=== PATIENT | female | born 1950 | race Caucasian/White ===

== ENCOUNTER → 2017-07-28 | Outpatient (CLI) | payer MEDICARE, BC | END | disposition home or self-care (01) | LOC: RAD 13:44 | DX: S80.252A Superficial foreign body, left knee, initial encounter (principal); M17.12 Unilateral primary osteoarthritis, left knee; X58.XXXA Exposure to other specified factors, initial encounter; Y93.89 Activity, other specified; Y92.89 Other specified places as the place of occurrence of the external cause; Y99.8 Other external cause status | CPT/HCPCS: 73562 ==

== ENCOUNTER → 2019-07-21 | Outpatient (CLI) | payer MEDICARE, BC ==
[~2019-07-21] MED LIST: ASCO500C9 PO; BIOT10004 PO; CALC-71 PO; CHOL200078 PO; CYAN25008 PO; DEXT30CA6 PO; GLUC-11 PO; IOHEXOL 180 MG/ML 10 ML VIAL. ONE; LISI10TA2 PO; MELO7.5T29 PO; MULT-735 PO; UBID100C26 PO; methylPREDNISolone ACETATE 40 MG/ML VIAL. ONE; methylPREDNISolone ACETATE 80 MG/ML VIAL. ONE
--- NOTE | 2019-07-22 00:30 | PAIN ---
DATE OF SERVICE: 07/21/2019 INITIAL CONSULTATION FOR PAIN CLINIC CHIEF COMPLAINT: Low back and bilateral lower extremity pain. HISTORY OF PRESENT ILLNESS: This is a 69-year-old female who presents with history of pain in the low back, bilateral lower extremity since about 09/2017, not a result of any specific injury or action that she is aware of, but getting worse over time, gradually increasing in the low back radiating to posterior gluteus, posterior thighs, posterior calves bilaterally, essentially right equal to left. The patient reports it is worse with walking, standing, changing positions, but waking her from sleep at least 2-3 times a night, does not affect her bowel or bladder control, however, but does affect her ability to walk at times, not using any assistive devices, however, the patient reports she has had some chiropractic treatment and physical therapy in the past, most recently 09/2017, chiropractic treatment, which helped at that time, but did not have any long lasting effects. The patient reports it is worse with walking, especially more than about 10-15 minutes, she does have to stop and rest, but can sit for longer periods of time with greater than an hour or so such as riding in a car. It is much more noticeable after about an hour or so. The patient reports no loss of motor function, but significant fatigability of both lower extremities, described as intermittent in intensity, but changes during the day, again with activity, radiating down both the legs posteriorly, shooting pain, aching and dull across the low back. The patient reports a disability rating from 0-10, 10 being the worst, is a 7 with family and home responsibilities, recreation and occupation, 3 with social activity, sexual behavior, 2 with self-care and 0 with life support activities. She did have MRI scan of the lumbar spine demonstrating severe disk bulging and slight anterolisthesis at L4-L5 with moderate central spinal and bilateral lateral recess stenosis with moderate bilateral neural foraminal stenosis, worse on the left, L5-S1 shows anterolisthesis and near complete loss of disk height with diffuse annular disk bulges, marked facet arthropathy, marked left neural foraminal stenosis present with disk osteophyte complex appearing to contact the L5 nerve root, marked right neural foraminal stenosis without definite contact of the nerve root, central stenosis present as well. MEDICATIONS: Current medications include meloxicam, Adderall, lisinopril, multivitamin, calcium, glucosamine. ALLERGIES: THE PATIENT IS ALLERGIES TO PENICILLIN AND HYDROCHLOROTHIAZIDE. PAST MEDICAL HISTORY: Significant for hypertension, cigarette smoking, quit 13 years ago, headaches, arthritis. PREVIOUS SURGERY: Include tonsillectomy, D and C, , breast augmentation and hernia repair, bunion surgery, neuroma foot surgery as well. FAMILY HISTORY: Significant for no major medical problems or conditions she is aware of. SOCIAL HISTORY: The patient drinks alcohol, maybe 2 times a week at the most. Does not smoke. Not using illegal, illicit or recreational drugs. Single, lives with her fiance and lives locally in [place], [place]. REVIEW OF SYSTEMS: The patient's review of systems is positive for those items mentioned in history of present illness. All systems reviewed and otherwise negative. It is complete, full and well documented on the patient's chart. PHYSICAL EXAMINATION: VITAL SIGNS: The patient's blood pressure is 140/96, pulse 72, respirations 16, temperature 98.2 degrees Fahrenheit, height is 5 feet 1 inch, weight is 127 pounds. GENERAL: The patient is awake, alert, oriented, appropriate, very pleasant demeanor. HEENT: Head shows normocephalic, atraumatic. Extraocular movements are intact and symmetrical. Oral cavity: Mucous membranes moist and pink. Dentition is intact. NECK: Shows anterior throat supple without palpable lymphadenopathy noted. Swallow reflex symmetrical. CHEST: Shows normal on inspection. Breath sounds are clear to auscultation bilaterally. HEART: Shows S1, S2 clear. No murmurs auscultated. ABDOMEN: Soft, nontender, nondistended. No palpable organomegaly is noted. No rebound or guarding demonstrated. BACK: Shows spine grossly in the midline. Normal appearing cervical lordotic curvature, thoracic kyphotic curvature and lumbar lordotic curvature. Lumbar paraspinous muscle shows symmetrical on inspection, with palpation shows some moderate tenderness diffusely bilaterally going diffusely without significant radiation. The patient does show good rotation and motion of lumbar spine, both laterally as well as extension and flexion without significant pain reported. No tenderness over the spinous processes, sacrum or sacroiliac regions. EXTREMITIES: Lower extremities show deep tendon reflexes at 2+ in the patellar, 1+ tendo-calcaneus tendons. Motor exam is strong with 5/5 dorsiflexion, extension, quadriceps and hamstring flexion symmetrical. Peripheral pulses are 1+ posterior tibia. No peripheral edema is noted. Lower extremities are warm and dry to touch, equal in color and appearance. Straight leg raise noted to be negative for reproduction of radicular symptoms bilaterally. Gaenslen's and Felix's maneuvers are negative bilaterally as well. The patient is able to walk, stand on her toes without difficulty with balance, walks with a normal appearing gait, does not appear to favor the right or left lower extremity for short distance in the office, not using any assistive devices to ambulate. SKIN: Shows warm and dry, good turgor. No edema. No sores, rashes or bruising. IMPRESSION: 1. This is a 69-year-old female with approximate year and a half history of pain in low back, bilateral lower extremity in a radicular fashion. 2. Lumbar spine MRI as noted. 3. Hypertension. 4. Arthritis. PLAN: Options were discussed with the patient including conservative medical managements, physical therapies and interventional techniques. She would like to pursue interventional techniques. We discussed a lumbar epidural steroid injection using description as well as anatomical models to describe the procedure. Risks were then discussed including, but not limited to bleeding, infection, possibility of epidural hematoma, subsequent neurological compromise, dural puncture, headaches, spinal cord and/or nerve damage, side effects of steroid medication and poor results regarding pain control. The patient understands and wished to proceed. The patient will return to clinic in approximately 2 weeks for followup. She was counseled on return appointment, activity level and side effects to be aware of. DIAGNOSES: Lumbar radiculopathy with lumbar degenerative disk disease, lumbar spinal stenosis. PROCEDURE: Lumbar epidural steroid injection, translaminar approach at L5-S1 level using C-arm fluoroscopic guidance under sterile prep and drape using local anesthetic. MEDICATION INJECTED: A total of 120 mg Depo-Medrol plus 10 mL of preservative-free normal saline and 2 mL of contrast. CONDITION AT DISCHARGE: Stable. The patient tolerated procedure well, had no complications. NICK SEGURA MD DR: NIRMAL/gibson JOB#: [id number] / [id number]
== END | disposition home or self-care (01) ==
LOC: PNCL 08:08
PROVIDERS: ATTEND Anesthesiology
DX: M51.16 Intervertebral disc disorders with radiculopathy, lumbar region (principal); M48.061 Spinal stenosis, lumbar region without neurogenic claudication; M19.90 Unspecified osteoarthritis, unspecified site; I10 Essential (primary) hypertension; Z79.899 Other long term (current) drug therapy; Z88.8 Allergy status to other drugs, medicaments and biological substances; Z88.0 Allergy status to penicillin; Z87.891 Personal history of nicotine dependence; Z98.890 Other specified postprocedural states
CPT/HCPCS: 62323; J1030; J1040; Q9965

== ENCOUNTER → 2019-08-04 | Outpatient (CLI) | payer MEDICARE, BC ==
[~2019-08-04] MED LIST changes: -IOHEXOL 180 MG/ML 10 ML VIAL. ONE; -methylPREDNISolone ACETATE 40 MG/ML VIAL. ONE; -methylPREDNISolone ACETATE 80 MG/ML VIAL. ONE
--- NOTE | 2019-08-04 12:55 | PAIN ---
DATE OF SERVICE: 08/04/2019 PROGRESS NOTE FOR PAIN CLINIC DIAGNOSES: Lumbar radiculopathy with lumbar degenerative disk disease, lumbar spinal stenosis. HISTORY OF PRESENT ILLNESS: The patient is a 69-year-old female who returns for followup status post lumbar epidural steroid injection x1. The patient reports about 75% improvement, significantly increased activity, walking greater distances, doing household activities, work activities, traveling with greater ease and comfort and has been working outside in her yard when the weather was a little warmer. The patient reports she is doing very well, was having very significant reduction in pain, occasionally pain in the low back and bilateral lower extremities, posterior gluteus, posterior thighs only very rarely. The patient reports she is sleeping well at night, essentially doing whatever she would like to do fairly comfortably without significant pain. The patient reports the pain is 4 on a scale of 10 at its worst over the past week, 3 on average, 1 at its least and is a 1 today. The patient reports no new motor or sensory deficits, no new bowel or bladder incontinence or other complaints. PHYSICAL EXAMINATION: VITAL SIGNS: The patient's blood pressure 141/84, pulse 78, respirations 16, temperature 98.0 degrees Fahrenheit, weight is 128 pounds. GENERAL: The patient is awake, alert, oriented, appropriate, very pleasant demeanor. HEENT: Head shows normocephalic, atraumatic. Extraocular movements are intact and symmetrical. Oral cavity: Mucous membranes moist and pink. Dentition is intact. NECK: Shows anterior throat supple without palpable lymphadenopathy noted. Swallow reflex symmetrical. CHEST: Shows normal on inspection. Breath sounds clear to auscultation bilaterally. HEART: Shows S1, S2 clear. ABDOMEN: Soft, nontender, nondistended. BACK: Shows spine grossly in the midline. Normal appearing thoracic kyphosis and lumbar lordotic curvature. Lumbar paraspinous muscle shows symmetrical on inspection, on palpation shows some very mild tenderness, but only in the low lumbar distribution bilaterally without asymmetry, without atrophy or hypertrophy. The patient has good rotational motion of lumbar spine, both laterally as well as extension and flexion without significant pain reported. EXTREMITIES: Lower extremities show deep tendon reflexes 2+ in the patellar, 1+ tendo-calcaneus tendons. Motor exam is strong with 5/5 dorsiflexion, extension, quadriceps and hamstring flexion symmetrical. Peripheral pulses are 1+ posterior tibia. No peripheral edema is noted bilaterally. PLAN: Options were discussed with the patient. The patient's old chart was reviewed as her current medication regimen updated. Current review of systems updated today as well. We will hold on any further injections at this time as the patient is doing quite well. Encourage or increase activity as tolerated, cautiously, but as tolerated. The patient will follow up at this time on as needed basis. NICK SEGURA MD DR: NIRMAL/gibson JOB#: [id number] / [id number]
== END | disposition home or self-care (01) ==
LOC: PNCL 08:46
PROVIDERS: ATTEND Anesthesiology
DX: M51.16 Intervertebral disc disorders with radiculopathy, lumbar region (principal); M48.061 Spinal stenosis, lumbar region without neurogenic claudication
CPT/HCPCS: G0463

== ENCOUNTER → 2019-11-02 | Outpatient (CLI) | payer MEDICARE, BC ==
[~2019-11-02] MED LIST changes: +IOHEXOL 180 MG/ML 10 ML VIAL. ONE; +methylPREDNISolone ACETATE 40 MG/ML VIAL. ONE; +methylPREDNISolone ACETATE 80 MG/ML VIAL. ONE
--- NOTE | 2019-11-02 10:14 | PAIN ---
DATE OF SERVICE: 11/02/2019 PROGRESS NOTE FOR PAIN CLINIC DIAGNOSES: Lumbar radiculopathy with lumbar degenerative disk disease, lumbar spinal stenosis. HISTORY OF PRESENT ILLNESS: The patient is a 69-year-old female who returns for followup status post lumbar epidural steroid injection x 1. The patient did very well after the last visit, we decided to hold off any further injections; however, the pain has come back now, the first injection was 07/21/2019. The patient reports she did very well, about 75% improvement. Pain is returning now in the back and bilateral lower extremities, radiating to posterior gluteus, posterior thighs, posterior calves, worse with walking, standing, better with sitting or lying down, but it has been again beginning to awaken her from sleep at night over the past few weeks about every 6-8 hours. The patient reports she has been doing much better with doing yard work at home, doing household activities, traveling with greater ease and comfort, reports now the pain is 7 on a scale of 10 at its worst over the past week, 6 on average, 5 at its least and is a 5 today. The patient reports it is sharp, tight, shooting in the lower extremities, low back as previously. No new motor or sensory deficits, no new bowel or bladder incontinence reported. PHYSICAL EXAMINATION: VITAL SIGNS: The patient's blood pressure 141/86, pulse is 77, respirations 20, temperature 98.4 degrees Fahrenheit, height is 5 feet 1 inch, weight is 129 pounds. GENERAL: The patient is awake, alert, oriented, appropriate, very pleasant demeanor. HEENT: Head shows normocephalic, atraumatic. Extraocular movements are intact and symmetrical. Oral cavity: Mucous membranes moist and pink. Dentition is intact. NECK: Shows anterior throat supple without palpable lymphadenopathy noted. Swallow reflex symmetrical. CHEST: Shows normal on inspection. Breath sounds clear to auscultation bilaterally. HEART: Shows S1, S2 clear. No murmurs auscultated. ABDOMEN: Soft, nontender, nondistended. No palpable organomegaly is noted. There is no rebound or guarding demonstrated. BACK: Shows spine grossly in the midline. Normal appearing thoracic kyphosis and minor flattening of lumbar lordotic curvature. Lumbar paraspinous muscle shows symmetrical on inspection.; on palpation shows some moderate tenderness diffusely bilaterally, but only diffusely without significant radiation. The patient has good rotational motion of lumbar spine, both laterally as well as extension and flexion without significant difficulty. EXTREMITIES: Lower extremities show deep tendon reflexes 2+ in the patellar, 1+ tendons. Motor exam is strong with 5/5 dorsiflexion, extension, quadriceps and hamstring flexion symmetrical. Peripheral pulses are 1+. No peripheral edema is noted bilaterally. Options were discussed with the patient. The patient's old chart was reviewed as her current medication regimen updated. Current review of systems updated today as well and we will proceed with a second in a series of lumbar epidural steroid injection today with fluoroscopic guidance. Risks were again discussed including, but not limited to bleeding, infection, possibility of epidural hematoma, subsequent neurological compromise, dural puncture, headaches, spinal cord and/or nerve damage, side effects of steroid medication and poor results regarding pain control. The patient understands and wished to proceed. The patient will return to clinic in approximately 2 weeks for followup. She was counseled on return appointment, activity level and side effects to be aware of. DIAGNOSIS: Lumbar radiculopathy with lumbar degenerative disk disease, lumbar spinal stenosis. PROCEDURE: Lumbar epidural steroid injection, translaminar approach at L5-S1 level using C-arm fluoroscopic guidance under sterile prep and drape using local anesthetic. MEDICATION INJECTED: A total of 120 mg Depo-Medrol plus 10 mL preservative-free normal saline and 2 mL of contrast. CONDITION AT DISCHARGE: Stable. The patient tolerated procedure well, had no complications. NICK SEGURA MD DR: NIRMAL/gibson JOB#: [id number] / [id number]
== END ==
LOC: PNCL 08:57
PROVIDERS: ATTEND Anesthesiology
DX: M51.16 Intervertebral disc disorders with radiculopathy, lumbar region (principal); M48.061 Spinal stenosis, lumbar region without neurogenic claudication
CPT/HCPCS: 62323; J1030; J1040; Q9965

== ENCOUNTER → 2020-02-09 | Outpatient (CLI) | payer MEDICARE, BC ==
--- NOTE | 2020-02-09 08:15 | PDOC ---
Progress Note - Pain Clinic Date of Service: DOS: DATE: 02/09/20 TIME: 08:12 Diagnosis: Dx: Lumbar radiculopathy with lumbar degenerative disc disease and lumbar spinal stenosis History or Present Illness: HPI: 69-year-old female returns follow-up status post lumbar epidural to injection x1. Patient last seen November 02, 2019. Patient reports she did very well initially for the first month to 2 months then the pain again returned over the past 3 to 4 weeks and now is only better 50% improvement condition is about 85% patient ports still pain low back bilateral lower extremities posterior gluteus posterior thighs posterior calves worse with walking standing standing from a seated position and changing positions. Patient points her pain is 8 on scale 10 is worse with the past week 7 on average 5 to fleece is a 5 today patient which is aching and shooting rating across the low back and lower extremities with some dull pain in the back as well. Patient reports no new motor or sensory deficits no new bowel or bladder consult complaints patient was done not awaken her from sleep at night she sleeping fairly well. Physical Exam: VS: Blood pressure is 140/87 pulse 72 respirations are 18 temperature is 90.3 F height is 5 feet 1 inches weight is 1 2 6 pounds PE: PHYSICAL EXAMINATION: GENERAL: The patient is awake, alert, oriented, appropriate, very pleasant demeanor HEENT: Shows normocephalic, atraumatic. Extraocular movements are intact and symmetrical. Oral cavity: Mucous membranes moist and pink. Dentition is intact. NECK: Shows anterior throat supple without palpable lymphadenopathy noted. Swallow reflex symmetrical. CHEST: Shows normal on inspection. Breath sounds are clear bilaterally, no rales rhonchi wheezes auscultated. HEART: Shows S1, S2 clear. No murmurs auscultated. ABDOMEN: Soft, nontender, nondistended. No palpable organomegaly is noted. No rebound or guarding demonstrated. BACK: Shows spine grossly in the midline. Normal-appearing cervical lordotic curvature. There is slightly increased thoracic kyphosis, some minor flattening of the lumbar lordotic curvature. Lumbar paraspinous muscles show symmetrical on inspection, on palpation shows some moderate tenderness diffusely throughout the upper, middle and lower distribution of the paraspinous muscles bilaterally without specific trigger points, without radiation of pain. The patient has good rotational motion of the lumbar spine, both laterally as well as extension and flexion without significant difficulty. No tenderness over the spinous processes, sacrum or sacroiliac regions. EXTREMITIES: Lower extremities show deep tendon reflexes 2+ in the patellar and tendo calcaneus tendons. Motor exam is 5 on a scale of 5 with right dorsiflexion, extension, quadriceps and hamstring flexion and 5/5 on the left. Peripheral pulses are 1+ posterior tibial. No peripheral edema is noted bilaterally. Lower extremities are warm and dry to touch, equal in color and appearance. SKIN: Shows warm and dry, good turgor. No edema. No sores, rashes or bruising throughout. Procedure: Procedure: Options were discussed with the patient. Patient will chart reviews her current medication regimen updated current review of systems updated today as well. We will proceed with a second in the series lumbar epidural steroid injection with fluoroscopic guidance. Risks were discussed including but not limited to bleeding infection possibility of epidural hematoma and subsequent neurological compromise dural puncture headache spinal cord and or nerve damage side effects of steroid medication and portal scarring pain control. Patient understands wishes to proceed return to clinic in possibly 2 weeks for follow-up was counseled as to return appointment activity level and side effects to be aware. Medication Injected: Med Injected: Procedure is lumbar epidural steroid injection under local anesthetic using sterile prep and drape at the L5-S1 level using C-arm fluoroscopic guidance in both AP and lateral views medications injected is 120 mg Depo-Medrol +[]mL preservative-free normal saline and 2 mL contrast- condition at discharge is stable patient tolerated procedure well had no complications. Condition at Discharge: Condition at Discharge: Condition at discharge is stable patient tolerated the procedure well had no complications. NICK SEGURA MD Feb 09, 2020 08:15
== END | disposition home or self-care (01) ==
LOC: PNCL 07:41
PROVIDERS: ATTEND Anesthesiology
DX: M51.16 Intervertebral disc disorders with radiculopathy, lumbar region (principal); M48.061 Spinal stenosis, lumbar region without neurogenic claudication; Z88.0 Allergy status to penicillin; Z88.8 Allergy status to other drugs, medicaments and biological substances; Z79.899 Other long term (current) drug therapy
CPT/HCPCS: 62323; J1030; J1040; Q9965

== ENCOUNTER → 2020-06-19 | Outpatient (CLI) | payer MEDICARE, BC ==
--- NOTE | 2020-06-19 08:26 | PDOC ---
Progress Note - Pain Clinic Date of Service: DOS: DATE: 06/19/20 TIME: 08:23 Diagnosis: Dx: Lumbar radiculopathy with lumbar degenerative disease and lumbar spinal stenosis History or Present Illness: HPI: 69-year-old female returns follow-up status post lumbar epidural steroid action x2 last seen February 09, 2020. Patient reports she did very well about 80% improvement for several months after the injection the pain is returning now for about 3 to 4 weeks in the low back and bilateral lower extremities with radiating pain in the posterior gluteus posterior thighs posterior calves bilaterally as well as the lateral thighs patient ports a 9 on scale 10 is worse over the past week 8 on average and a 5 its least is an 8 today. Patient ports sharp and tight radiating across the back into the lower extremities on and off in intensity but more pain in the low back lately. Patient reports no new motor or sensory deficits does not awaken her from sleep at night initially she was doing much better with distance walking doing household activities work activities and travel with greater ease and comfort as well. Patient ports no new bowel or bladder incontinence or other complaints. Physical Exam: VS: Blood pressure is 160/102 pulse 88 respirations 18 temperature 98.7 F height is 5 feet 1 inches weight is 128 pounds PE: PHYSICAL EXAMINATION: GENERAL: The patient is awake, alert, oriented, appropriate, very pleasant demeanor HEENT: Shows normocephalic, atraumatic. Extraocular movements are intact and symmetrical. Oral cavity: Mucous membranes moist and pink. Dentition is intact. NECK: Shows anterior throat supple without palpable lymphadenopathy noted. Swallow reflex symmetrical. CHEST: Shows normal on inspection. Breath sounds are clear bilaterally, no rales or rhonchi. HEART: Shows S1, S2 clear. No murmurs auscultated. ABDOMEN: Soft, nontender, nondistended, flat. No palpable organomegaly is noted. No rebound or guarding demonstrated. BACK: Shows spine grossly in the midline. Normal-appearing cervical lordotic curvature. There is slightly increased thoracic kyphosis, some minor flattening of the lumbar lordotic curvature. Lumbar paraspinous muscles show symmetrical on inspection, on palpation shows some moderate tenderness diffusely throughout the upper, middle and lower distribution of the paraspinous muscles without specific trigger points, without radiation of pain. The patient has good rotational motion of the lumbar spine, both laterally as well as extension and flexion without significant difficulty. No tenderness over the spinous processes, sacrum or sacroiliac regions. EXTREMITIES: Lower extremities show deep tendon reflexes 2+ in the patellar and tendo calcaneus tendons. Motor exam is 5 on a scale of 5 with right dorsiflexion, extension, quadriceps and hamstring flexion and 5/5 on the left. Peripheral pulses are 1+ posterior tibial. No peripheral edema is noted bilaterally. Lower extremities are warm and dry to touch, equal in color and appearance. SKIN: Shows warm and dry, good turgor. No edema. No sores, rashes or bruising throughout. Procedure: Procedure: Options were discussed with the patient. Patient will chart reviews her current medication regimen updated current review of systems updated today as well. We will proceed with a third in the series lumbar epidural to injection today with fluoroscopic guidance. Risks were discussed including but not limited to: Bleeding, infection, possibility of epidural hematoma and subsequent neurological compromise, dural puncture, headaches, spinal cord and/or nerve damage, side effects of steroid medication, and poor results regarding pain control. Patient understands wished to proceed. She will return to the clinic in approximate 2 weeks for follow-up was counseled as return appointment activity level, and side effects to be aware of. Medication Injected: Med Injected: Procedure is lumbar epidural steroid injection under local anesthetic using sterile prep and drape at the L5-S1 level using C-arm fluoroscopic guidance in both AP and lateral views medications injected is 120 mg Depo-Medrol + 10 mL preservative-free normal saline and 2 mL contrast- condition at discharge is stable patient tolerated procedure well had no complications. Condition at Discharge: Condition at Discharge: Condition at discharge is stable, patient tolerated procedure well and had no complications. NICK SEGURA MD Jun 19, 2020 08:26
== END | disposition home or self-care (01) ==
LOC: PNCL 07:50
PROVIDERS: ATTEND Anesthesiology
DX: M51.16 Intervertebral disc disorders with radiculopathy, lumbar region (principal); M48.061 Spinal stenosis, lumbar region without neurogenic claudication; Z98.890 Other specified postprocedural states; Z88.0 Allergy status to penicillin; Z88.8 Allergy status to other drugs, medicaments and biological substances
CPT/HCPCS: 62323; J1030; J1040; Q9965

== ENCOUNTER → 2020-08-29 | Outpatient (CLI) | payer MEDICARE, BC ==
[~2020-08-29] MED LIST changes: +LISI10TA16 PO; -LISI10TA2 PO
--- NOTE | 2020-08-29 09:06 | PDOC4 ---
PROCEDURE Procedure Patient was consented for lumbar epidural steroid injection. Risks were dis cussed including but not limited to: Bleeding, infection, possibility of epidural hematoma and subsequent neurological compromise, dural puncture, headaches, spinal cord and/or nerve damage, side effects of steroid medication, and poor results regarding pain control. Patient understands and wished to proceed. Procedure is lumbar epidural steroid injection under local anesthetic using sterile prep and drape at the L5-S1 level using C-arm fluoroscopic guidance in both AP and lateral views medications injected is 120 mg Depo-Medrol + 10 mL preservative-free normal saline and 2 mL contrast- condition at discharge is stable patient tolerated procedure well had no complications. NICK SEGURA MD Aug 29, 2020 09:06
--- NOTE | 2020-08-29 09:06 | PDOC ---
Progress Note - Pain Clinic Date of Service: DOS: DATE: 08/29/20 TIME: 09:03 Diagnosis: Dx: Lumbar radiculopathy with lumbar degenerative disease and lumbar spinal stenosis Cervical radiculopathy with cervical degenerative disc disease History or Present Illness: HPI: 70-year-old female returns for follow-up status post lumbar epidural steroid injection x3 most recently June 19, 2020 patient reports did very well about 80% improvement for the first 2 months pain returning over the last few weeks in the low back and bilateral lower extremities right equal to left in the posterior gluteus posterior thighs posterior calves and into the ankles patient reports is worse with walking standing change positions generally better with sitting or laying down does not awaken her from sleep at night most nights patient reports no new motor or sensory deficits no bowel or bladder incontinence describes the pain as an 8 on scale 10 is worse over the past week 7 on average 6 its least is a 7 today. Patient describes pain as aching and t ight in the low back cramping in the back and radiating the lower extremities. Patient reports no new motor or sensory deficits no new bowel or bladder incontinence initially she was in much better with distance walking doing household activities work activities and travel with greater ease discomfort as well. Physical Exam: VS: Pressure is 157.7 pulse 76 respirations 18 temperature 90.2 F height is 5 foot 1 his weight is 127 pounds PE: PHYSICAL EXAMINATION: GENERAL: The patient is awake, alert, oriented, appropriate, very pleasant demeanor HEENT: Shows normocephalic, atraumatic. Extraocular movements are intact and symmetrical. Oral cavity: Mucous membranes moist and pink. NECK: Shows anterior throat supple without palpable lymphadenopathy noted. Swallow reflex symmetrical. CHEST: Shows normal on inspection. Breath sounds are clear bilaterally, no rales or rhonchi. HEART: Shows S1, S2 clear. No murmurs auscultated. ABDOMEN: Soft, nontender, nondistended, flat. No palpable organomegaly is noted. BACK: Shows spine grossly in the midline. Normal-appearing cervical lordotic curvature. There is slightly increased thoracic kyphosis, some minor flattening of the lumbar lordotic curvature. Lumbar paraspinous muscles show symmetrical on inspection, on palpation shows some moderate tenderness diffusely throughout the upper, middle and lower distribution of the paraspinous muscles without specific trigger points, without radiation of pain. The patient has good rotational motion of the lumbar spine, both laterally as well as extension and flexion without significant difficulty. No tenderness over the spinous processes, sacrum or sacroiliac regions. EXTREMITIES: Lower extremities show deep tendon reflexes 2+ in the patellar and tendo calcaneus tendons. Motor exam is 5 on a scale of 5 with right dorsiflexion, extension, quadriceps and hamstring flexion and 5/5 on the left. Peripheral pulses are 1+ posterior tibial. No peripheral edema is noted bilater ally. Lower extremities are warm and dry to touch, equal in color and appearance. SKIN: Shows warm and dry, good turgor. No edema. No sores, rashes or bruising throughout. Procedure: Procedure: Discussed with patient. Patient chart reviews her current medication regimen updated current review of systems updated today as well. Proceed with a lumbar epidural steroid injection as the first in the series today with fluoroscopic guidance. Risks were discussed including but not limited to: Bleeding, infection, possibility of epidural hematoma and subsequent neurological compromise, dural puncture, headaches, spinal cord and/or nerve damage, side effects of steroid medication, and poor results regarding pain control. Patient understands and wished to proceed. Return to clinic in approximately 2 weeks for follow-up was counseled as to return appointment activity level and side effects to be aware of. Medication Injected: Med Injected: Procedure is lumbar epidural steroid injection under local anesthetic using sterile prep and drape at the L5-S1 level using C-arm fluoroscopic guidance in both AP and lateral views medications injected is 120 mg Depo-Medrol + 10 mL preservative-free normal saline and 2 mL contrast- condition at discharge is stable patient tolerated procedure well had no complications. Condition at Discharge: Condition at Discharge: Patient at discharge stable, patient already procedure well and had no complications. NICK SEGURA MD Aug 29, 2020 09:06
== END | disposition home or self-care (01) ==
LOC: PNCL 08:12
PROVIDERS: ATTEND Anesthesiology
DX: M51.16 Intervertebral disc disorders with radiculopathy, lumbar region (principal); M48.061 Spinal stenosis, lumbar region without neurogenic claudication; M50.10 Cervical disc disorder with radiculopathy, unspecified cervical region; Z79.899 Other long term (current) drug therapy; Z88.0 Allergy status to penicillin; Z88.8 Allergy status to other drugs, medicaments and biological substances
CPT/HCPCS: 62323; J1030; J1040; Q9965; 77002

== ENCOUNTER → 2020-09-04 | Outpatient (CLI) | payer MEDICARE, BC ==
[~2020-09-04] MED LIST changes: -IOHEXOL 180 MG/ML 10 ML VIAL. ONE; -methylPREDNISolone ACETATE 40 MG/ML VIAL. ONE; -methylPREDNISolone ACETATE 80 MG/ML VIAL. ONE
--- NOTE | 2020-09-04 16:34 | KCIC ---
EXAM: Cervical spine MRI without contrast. HISTORY: Cervical radiculopathy. TECHNIQUE: Multiplanar, multisequence magnetic resonance imaging of the cervical spine was performed without contrast. COMPARISON: None. FINDINGS: There is cervical kyphosis. There is 3 mm anterolisthesis of C3 on C4, 5 mm anterolisthesis of C4 on C5, 3 mm retrolisthesis of C5 on C6 and C6 on C7 and 3 mm anterolisthesis of C7 on T1. Ther e is also mild multilevel anterolisthesis involving the upper thoracic levels. There is degenerative endplate remodeling with disc space narrowing and osteophytosis at the majority of the cervical level s. There are few osseous hemangiomas. There is no fracture or suspicious osseous lesion. The skull ba se and posterior fossa are unremarkable. No cervical spinal cord lesion is seen. There is a 7 mm susp ected focus of mucus or retention cyst within the left hypopharynx. There is a heterogeneous thyroid containing suspected multiple nodules and cysts. At C2-C3, there is a small posterior central disc protrusion. There is mild left greater than right f acet arthropathy. There is no stenosis. At C3-C4, there is a disc bulge and endplate osteophytosis. There is mild right and moderate left fac et arthropathy. There is mild left foraminal stenosis. At C4-C5, there is a disc bulge and endplate osteophytosis. There is moderate right and mild left fac et arthropathy. There is uncovertebral arthropathy. There is mild bilateral foraminal stenosis. There is flattening of the ventral aspect of the spinal cord and mild central canal stenosis measuring 9.2 mm in anterior posterior dimension At C5-C6, there is a disc bulge and endplate osteophytosis. There is mild right and moderate left fac et arthropathy. There is bilateral uncovertebral arthropathy. There is moderate right and severe left foraminal stenosis. There is flattening of the ventral aspect of spinal cord and moderate to severe central canal stenosis measuring 7.0 mm in anterior posterior dimension. At C6-C7, there is a disc bulge and endplate osteophytosis. There is moderate bilateral facet arthrop athy. There is uncovertebral arthropathy. There is moderate left foraminal stenosis. There is flatten ing of the ventral aspect of the spinal cord and [id number] central canal stenosis measuring 8. 3 mm in anterior posterior. IMPRESSION: 1. Multilevel degenerative change involving the cervical spine, described in detail above. This is as sociated with foraminal and central canal stenosis before mentioned levels. The central canal stenosi s is most significant at C5-C6. No spinal cord signal abnormality is seen to suggest edema or myeloma lacia. 2. Multilevel listhesis and cervical kyphosis, degenerative in etiology. 3. Heterogeneous thyroid likely containing multiple nodules. This can be assessed with thyroid sonogr aphy. Electronically signed by: Sharda Morris MD (09/04/2020 4:32 PM) [id number]
== END | disposition home or self-care (01) ==
LOC: KCIC MRI 15:15
PROVIDERS: ATTEND Anesthesiology
DX: M54.12 Radiculopathy, cervical region (principal); M48.061 Spinal stenosis, lumbar region without neurogenic claudication; Z79.899 Other long term (current) drug therapy; Z88.0 Allergy status to penicillin; Z88.8 Allergy status to other drugs, medicaments and biological substances
CPT/HCPCS: 72141

== ENCOUNTER → 2020-11-06 | Outpatient (CLI) | payer MEDICARE, BC ==
[~2020-11-06] MED LIST changes: +IOHEXOL 180 MG/ML 10 ML VIAL. ONE; +methylPREDNISolone ACETATE 40 MG/ML VIAL. ONE; +methylPREDNISolone ACETATE 80 MG/ML VIAL. ONE
--- NOTE | 2020-11-06 09:48 | PDOC ---
Progress Note - Pain Clinic Date of Service: DOS: DATE: 11/06/20 TIME: 09:46 Diagnosis: Dx: Lumbar radiculopathy with lumbar degenerative disc disease and lumbar spinal stenosis Cervical radiculopathy with cervical degenerative disc disease History or Present Illness: HPI: 70-year-old female returns for follow-up status post lumbar epidural steroid action x1. Patient reports about 60% improvement overall still pain in the bilateral lower extremities posterior gluteus posterior thighs and calves worse with walking standing initially usually much better with distance walking doing household activities work activities working in her yard with greater ease and comfort patient reports he is sleeping better at night as well generally does not awaken her from sleep until the last week or so it has began to about every 5 hours patient reports pain is an 8 on scale 10 is worse over the past week 7 on average 6 its least and is a 7 today patient reports a stabbing and radiating also some pain that shooting in the lower extremities after her neck is also having some difficulty we did get an MRI scan on her cervical spine which we discussed with her today as well showing some significant disc bulging and degenerative changes at the C5-6 and C6-7 levels patient reports the pain the neck is aching and sharp as well. Patient reports no new motor or sensory deficits no new bowel or bladder complaints. Physical Exam: VS: Blood pressure is 145/93 pulse 90 respirations 18 temperature 99.4 F height 5 feet 1 inches weight is 128 pounds PE: PHYSICAL EXAMINATION: GENERAL: The patient is awake, alert, oriented, appropriate, very pleasant demeanor HEENT: Shows normocephalic, atraumatic. Extraocular movements are intact and symmetrical. Oral cavity: Mucous membranes moist and pink. Dentition is intact. NECK: Shows anterior throat supple without palpable lymphadenopathy noted. Swallow reflex symmetrical. CHEST: Shows normal on inspection. Breath sounds are clear bilaterally, no rales or rhonchi. HEART: Shows S1, S2 clear. No murmurs auscultated. ABDOMEN: Soft, nontender, nondistended. No palpable organomegaly is noted. No rebound or guarding demonstrated. BACK: Shows spine grossly in the midline. Normal-appearing cervical lordotic curvature. Cervical paraspinous muscles show symmetrical inspection, on palpation shows a moderate tenderness diffusely more on the left than the right in the inferior aspect the cervical paraspinous posture without specific radiation. Patient has good rotation motion cervical spine both laterally as well as extension flexion without significant difficulty. There is slightly increased thoracic kyphosis, some minor flattening of the lumbar lordotic curvature. Lumbar paraspinous muscles show symmetrical on inspection, on palpation shows some moderate tenderness diffusely throughout the upper, middle and lower distribution of the paraspinous muscles without specific trigger points, without radiation of pain. The patient has good rotational motion of the lumbar spine, both laterally as well as extension and flexion without significant difficulty. No tenderness over the spinous processes, sacrum or sacroiliac regions. EXTREMITIES: Lower extremities show deep tendon reflexes 2+ in the patellar and tendo calcaneus tendons. Motor exam is 5 on a scale of 5 with right dorsiflexion, extension, quadriceps and hamstring flexion and 5/5 on the left. Peripheral pulses are 1+ posterior tibial. No peripheral edema is noted bilaterally. Lower extremities are warm and dry to touch, equal in color and appearance. SKIN: Shows warm and dry, good turgor. No edema. No sores, rashes or bruising throughout. Procedure: Procedure: Options were discussed with the patient. Patient chart reviews her current medication regimen updated current review of systems updated today as well. We will proceed with a second in a series lumbar epidural steroid injection today with fluoroscopic guidance. Risks were discussed including but not limited to: Bleeding, infection, possibility of epidural hematoma and subsequent neurological compromise, dural puncture, headaches, spinal cord and/or nerve damage, side effects of steroid medication, and poor results regarding pain control. Patient understands and wished to proceed. Patient will return to clinic in approximate 2 weeks for follow-up, was counseled as return appointment activity level and side effects to be aware of. Medication Injected: Med Injected: Procedure is lumbar epidural steroid injection under local anesthetic using sterile prep and drape at the 5 S1 level using C-arm fluoroscopic guidance in b h AP and lateral views medications injected is 120 mg Depo-Medrol +10mL preservative-free normal saline and 2 mL contrast- condition at discharge is stable patient tolerated procedure well had no complications. Condition at Discharge: Condition at Discharge: Condition at discharge stable, patient tolerated procedure well and had no complications. NICK SEGURA MD November 06, 2020 09:48
--- NOTE | 2020-11-06 09:49 | PDOC4 ---
PROCEDURE Procedure Patient was consented for lumbar epidural steroid injection. Risks were dis cussed including but not limited to: Bleeding, infection, possibility of epidural hematoma and subsequent neurological compromise, dural puncture, headaches, spinal cord and/or nerve damage, side effects of steroid medication, and poor results regarding pain control. Patient understands and wished to proceed. Procedure is lumbar epidural steroid injection under local anesthetic using sterile prep and drape at the L5-S1 level using C-arm fluoroscopic guidance in both AP and lateral views medications injected is 120 mg Depo-Medrol +10mL preservative-free normal saline and 2 mL contrast- condition at discharge is stable patient tolerated procedure well had no complications. NICK SEGURA MD November 06, 2020 09:48
== END | disposition home or self-care (01) ==
LOC: PNCL 08:47
PROVIDERS: ATTEND Anesthesiology
DX: M51.16 Intervertebral disc disorders with radiculopathy, lumbar region (principal); M48.061 Spinal stenosis, lumbar region without neurogenic claudication; M50.10 Cervical disc disorder with radiculopathy, unspecified cervical region; Z79.899 Other long term (current) drug therapy; Z88.0 Allergy status to penicillin; Z88.8 Allergy status to other drugs, medicaments and biological substances
CPT/HCPCS: 62323; J1030; J1040; Q9965

== ENCOUNTER → 2021-01-20 | Outpatient (CLI) | payer MEDICARE, BC ==
--- NOTE | 2021-01-20 08:21 | PDOC ---
Progress Note - Pain Clinic Date of Service: DOS: DATE: 01/20/21 TIME: 08:17 Diagnosis: Dx: Lumbar radiculopathy with lumbar degenerative disease lumbar spinal stenosis Cervical radiculopathy with cervical degenerative disease Myofascial pain History or Present Illness: HPI: 70-year-old female returns for follow-up status post lumbar epidural steroid injection x2 last seen November 06, 2020 patient reports she did very well with about 80% improvement initially now about 50% improvement in the low back bilateral lower extremities much easier with walking standing changing positions doing work activities household activities travel with greater ease and comfort sleeping better at night patient reports is beginning to increase in pain in the low back bilateral lower extremities describes radiating from the low back into the posterior gluteus posterior thighs posterior calves worse on the right than the left but present bilaterally patient reports cramping tight shooting can be radiating on and off in intensity rates as an 8 on a scale of 10 is worse over the past week 7 on average 6 its least is a 6 today. Patient reports no new motor or sensory deficits no bowel or bladder incontinence. Patient reports he has felt somewhat unstable over the past few weeks with the lower extremities feeling more fatigued and slightly weaker. Patient has not had any falls. Physical Exam: VS: Blood pressure is 151/96 pulse 75 respiration 16 temperature is 98.4 F weight is 123 pounds PE: PHYSICAL EXAMINATION: GENERAL: The patient is awake, alert, oriented, appropriate, very pleasant in demeanor HEENT: Shows normocephalic, atraumatic. Extraocular movements are intact and symmetrical. Oral cavity: Mucous membranes moist and pink. NECK: Shows anterior throat supple without palpable lymphadenopathy noted. Swallow reflex symmetrical. CHEST: Shows normal on inspection. Breath sounds are clear bilaterally. HEART: Shows S1, S2 clear. No murmurs auscultated. ABDOMEN: Soft, nontender, nondistended. No palpable organomegaly is noted. No rebound or guarding demonstrated. BACK: Shows spine grossly in the midline. Normal-appearing cervical lordotic curvature. Cervical paraspinous muscles show symmetrical inspection on palpation some moderate tenderness and diffuse trigger point regions in the left trapezius and the medial aspect of the superior trapezius as well as the inferio r aspect cervical paraspinous musculature right side is nontender. There is slightly increased thoracic kyphosis, some minor flattening of the lumbar lordotic curvature. Lumbar paraspinous muscles show symmetrical on inspection, on palpation shows some moderate tenderness diffusely throughout the upper, middle and lower distribution of the paraspinous muscles, but without specific trigger points, without radiation of pain. The patient has good rotational motion of the lumbar spine, both laterally as well as extension and flexion without significant difficulty. EXTREMITIES: Lower extremities show deep tendon reflexes 2+ in the patellar and tendo calcaneus tendons. Motor exam is 4 on a scale of 5 with right dorsiflexion, extension, quadriceps and hamstring flexion and 4/5 on the left. Peripheral pulses are 1 posterior tibial. No peripheral edema is noted bilaterally. Lower extremities are warm and dry to touch, equal in color and appearance. Upper extremity show deep tendon reflexes 2+ in the bicep tricep tendons motor exam strong 5 x 5 carding utility tender strength bicep and tricep flexion bilaterally and equal. SKIN: Shows warm and dry, good turgor. No edema. No sores, rashes or bruising throughout. Procedure: Procedure: Options were discussed with patient. Patient chart reviews her current medication regimen updated current review of systems updated today as well. We will proceed with a third in the series lumbar epidural steroid injection today with fluoroscopic guidance. Risks were discussed including but not limited to: Bleeding, infection, possibility of epidural hematoma and subsequent neurological compromise, dural puncture, headaches, spinal cord and/or nerve damage, side effects of steroid medication, and poor results regarding pain control. Patient understands and wished to proceed. Patient will return to the clinic in approximate 2 weeks for follow-up, was counseled as return appointment active level and side effects be aware of. We will also order physical therapy for cervical decompression myofascial release stretching strengthening massage techniques and traction. Medication Injected: Med Injected: Procedure is lumbar epidural steroid injection under local anesthetic using sterile prep and drape at the L5-S1 level using C-arm fluoroscopic guidance in both AP and lateral views medications injected is 120 mg Depo-Medrol +10mL preservative-free normal saline and 2 mL contrast- condition at discharge is stable patient tolerated procedure well had no complications. Condition at Discharge: Condition at Discharge: Condition at discharge is stable, patient tolerated the procedure well and had no complications. NICK SEGURA MD Jan 20, 2021 08:21
--- NOTE | 2021-01-20 08:22 | PDOC4 ---
Procedure Note: ICD 10 Code: ICD 10 Code: M 54.17 M 48.07 Procedure Note: Patient was consented for lumbar epidural steroid injection with fluoroscopic guidance. Risks were discussed including but not limited to: Bleeding, infection, possibility of epidural hematoma and subsequent neurological compromise, dural puncture, headaches, spinal cord and/or nerve damage, side effects of steroid medication, and poor results regarding pain control. Patient understands and wished to proceed. Procedure is lumbar epidural steroid injection under local anesthetic using sterile prep and drape at the L5 S1 level using C-arm fluoroscopic guidance in both AP and lateral views medications injected is 120 mg Depo-Medrol +10mL preservative-free normal saline and 2 mL contrast- condition at discharge is stable patient tolerated procedure well had no complications. NICK SEGURA MD Jan 20, 2021 08:22
== END ==
LOC: PNCL 07:36
PROVIDERS: ATTEND Anesthesiology
DX: M51.17 Intervertebral disc disorders with radiculopathy, lumbosacral region (principal); M48.07 Spinal stenosis, lumbosacral region
CPT/HCPCS: 62323; J1030; J1040; Q9965

== ENCOUNTER → 2021-03-19 | Outpatient (CLI) | payer MEDICARE, BC ==
[~2021-03-19] MED LIST changes: -methylPREDNISolone ACETATE 40 MG/ML VIAL. ONE
--- NOTE | 2021-03-19 10:34 | PDOC ---
Progress Note - Pain Clinic Date of Service: DOS: DATE: 03/19/21 TIME: 10:31 Diagnosis: Dx: Lumbar radiculopathy lumbar degenerative disease lumbar spinal stenosis Cervical radiculopathy with cervical degenerative disc disease Myofascial pain History or Present Illness: HPI: 70-year-old female returns for follow-up last seen January 20, 2021 patient very well after a lumbar epidural steroid injection with about 75% improvement initially now about 50% improvement the pain is returning now in the low back the bilateral lower extremities right and left in the posterior gluteus posterior thigh posterior calf to the ankles and feet more on the right than the left side. Patient reports also pain in the base of the neck and shoulders but her pain in the low back is much more significant patient rates it as a 6 on a scale of 10 is worse over the past week 5 on average for its least is a 4 today patient ports sharp tight shooting in the lower extremities radiating also stabbing in the low back patient patient reports is worse with walking standing changing positions although after last injection he did much better with walking doing household activities and travel with greater ease and comfort still better with sitting or laying down does not awaken her from sleep at night. Patient re ports no bowel or bladder incontinence. Patient reports no change in her medications she is substituting naproxen instead of the meloxicam still takes meloxicam on some days naproxen on others as it does do better for the back pain at times and the overall generalized arthritic pain but the meloxicam seems to do better for her. Physical Exam: VS: Blood pressure is 143/91 pulse 84 respirations 20 temperature is 99.5 F weight is 124 pounds PE: PHYSICAL EXAMINATION: GENERAL: The patient is awake, alert, oriented, appropriate, very pleasant in demeanor HEENT: Shows normocephalic, atraumatic. Extraocular movements are intact and symmetrical. Oral cavity: Mucous membranes moist and pink. Dentition is in tact. NECK: Shows anterior throat supple without palpable lymphadenopathy noted. Swallow reflex symmetrical. CHEST: Shows normal on inspection. Breath sounds are clear bilaterally, no rales or rhonchi. HEART: Shows S1, S2 clear. No murmurs auscultated. ABDOMEN: Soft, nontender, nondistended. No palpable organomegaly is noted. BACK: Shows spine grossly in the midline. Normal-appearing cervical lordotic curvature. There is increased thoracic kyphosis, some mild flattening of the lumbar lordotic curvature. Lumbar paraspinous muscles show symmetrical on inspection, on palpation shows some moderate tenderness diffusely throughout the upper, middle and lower distribution of the paraspinous muscles, but without specific trigger points, without radiation of pain. The patient has good rotational motion of the lumbar spine, both laterally as well as extension and flexion without significant difficulty. No tenderness over the spinous processes, sacrum or sacroiliac regions. EXTREMITIES: Lower extremities show deep tendon reflexes to in the patellar and tendo calcaneus tendons. Motor exam is 4 on a scale of 5 with right dorsiflexion, extension, quadriceps and hamstring flexion and 4/5 on the left. Peripheral pulses are 1 posterior tibial. No peripheral edema is noted bilaterally. Lower extremities are warm and dry to touch, equal in color and appearance. SKIN: Shows warm and dry, good turgor. No edema. No sores, rashes or bruising throughout. Procedure: Procedure: Options discussed with patient. Patient chart reviews her current medication regimen updated current view of systems updated today as well. We will proceed with a lumbar epidural steroid injection today with fluoroscopic guidance. Risks were discussed including but not limited to: Bleeding, infection, possibility of epidural hematoma and subsequent neurological compromise, dural puncture, headaches, spinal cord and/or nerve damage, side effects of steroid medication, and poor results regarding pain control. Patient understands and wished to proceed. Patient return to the clinic in approximate 2 weeks for follow-up, was counseled as return appointment, typical, and side effects to be aware of. Medication Injected: Med Injected: Procedure is lumbar epidural steroid injection under local anesthetic using sterile prep and drape at the L5-S1 level using C-arm fluoroscopic guidance in both AP and lateral views medications injected is 120 mg Depo-Medrol +10mL preservative-free normal saline and 2 mL contrast- condition at discharge is stable patient tolerated procedure well had no complications. Condition at Discharge: Condition at Discharge: Condition at discharge stable, patient tolerated the procedure well and had no complications. NICK SEGURA MD Mar 19, 2021 10:34
--- NOTE | 2021-03-19 10:35 | PDOC4 ---
Procedure Note: ICD 10 Code: ICD 10 Code: M54.17 M4 8.07 M51.87 Procedure Note: Patient was consented for lumbar epidural steroid injection with fluoroscopic guidance. Risks were discussed including but not limited to: Bleeding, infection, possibility of epidural hematoma and subsequent neurological compromise, dural puncture, headaches, spinal cord and/or nerve damage, side effects of steroid medication, and poor results regarding pain control. Patient understands and wished to proceed. Procedure is lumbar epidural steroid injection under local anesthetic using skye rile prep and drape at the L5-S1 level using C-arm fluoroscopic guidance in both AP and lateral views medications injected is 120 mg Depo-Medrol +10mL preservative-free normal saline and 2 mL contrast- condition at discharge is stable patient tolerated procedure well had no complications. NICK SEGURA MD Mar 19, 2021 10:35
== END | disposition home or self-care (01) ==
LOC: PNCL 09:42
PROVIDERS: ATTEND Anesthesiology
DX: M51.16 Intervertebral disc disorders with radiculopathy, lumbar region (principal); M48.061 Spinal stenosis, lumbar region without neurogenic claudication; M50.10 Cervical disc disorder with radiculopathy, unspecified cervical region; M79.18 Myalgia, other site; Z79.899 Other long term (current) drug therapy; Z88.0 Allergy status to penicillin
CPT/HCPCS: 62323; J1040; Q9965

== ENCOUNTER → 2021-06-11 | Outpatient (CLI) | payer MEDICARE, BC ==
[~2021-06-11] MED LIST changes: +methylPREDNISolone ACETATE 40 MG/ML VIAL. ONE
--- NOTE | 2021-06-11 09:59 | PDOC ---
Progress Note - Pain Clinic Date of Service: DOS: DATE: 06/11/21 TIME: 09:56 Diagnosis: Dx: Lumbar radiculopathy with lumbar degenerative disease lumbar spinal stenosis Cervical radiculopathy with cervical degenerative disc disease Myofascial pain History or Present Illness: HPI: 70-year-old female returns for follow-up last seen February 2021 patient did very well after lumbar epidural steroid injection reports about 80% improvement for at least 2 to 3 months following the injection patient reports pain is returning but is now more in the right leg than the left and previously it was only on the left side patient reports that she was doing well until she was ice- skating with her granddaughter few weeks back and she fell sprained her right wrist and kandice her back patient reports has had significant pain across the back since that time and radiating to the lower extremities patient reports aching tight shooting the leg stabbing in the back radiating in both lower extremities patient reports is worse with walking standing changing positions rates as an 8 on scale 10 is worst over the past week 7 on average 6 its least is a 7 today. Patient reports is better with laying down but has been waking her from sleep since she fell about 2 weeks ago. Patient reports no bowel or bl adder incontinence. Physical Exam: VS: Blood pressure is 149/99 pulse 87 respirations 16 temperature 98.3 F height is 5 feet 1 inches weight is1 26 pounds PE: PHYSICAL EXAMINATION: GENERAL: The patient is awake, alert, oriented, appropriate, very pleasant in demeanor HEENT: Shows normocephalic, atraumatic. Extraocular movements are intact and symmetrical. Oral cavity: Mucous membranes moist and pink. Dentition is intact. NECK: Shows anterior throat supple without palpable lymphadenopathy noted. Swallow reflex symmetrical. CHEST: Shows normal on inspection. Breath sounds are clear bilaterally, no rales rhonchi. HEART: Shows S1, S2 clear. No murmurs auscultated. ABDOMEN: Soft, nontender, nondistended. No palpable organomegaly is noted. BACK: Shows spine grossly in the midline. Normal-appearing cervical lordotic curvature. There is slightly increased thoracic kyphosis, some minor flattening of the lumbar lordotic curvature. Lumbar paraspinous muscles show symmetrical on inspection, on palpation shows some moderate tenderness diffusely throughout the upper, middle and lower distribution of the paraspinous muscles, but without specific trigger points, without radiation of pain. The patient has good rotational motion of the lumbar spine, both laterally as well as extension and flexion without significant difficulty. No tenderness over the spinous processes, sacrum or sacroiliac regions. EXTREMITIES: Lower extremities show deep tendon reflexes 2+ in the patellar and tendo calcaneus tendons. Motor exam is 4 on a scale of 5 with right dorsiflexion, extension, quadriceps and hamstring flexion and 4/5 on the left. Peripheral pulses are 1+ posterior tibial. No peripheral edema is noted bilaterally. Lower extremities are warm and dry. SKIN: Shows warm and dry, good turgor. No edema. No sores, rashes or bruising throughout. Procedure: Procedure: Options discussed with patient. Patient chart was reviewed his current med ication regimen updated current review of systems updated today as well. We will proceed with a lumbar epidural steroid injection today with fluoroscopic guidance. Risks were discussed including but not limited to: Bleeding, infection, possibility of epidural hematoma and subsequent neurological compromise, dural puncture, headaches, spinal cord and/or nerve damage, side effects of steroid medication, and poor results regarding pain control. Patient understands and wished to proceed. Patient will return to clinic in approximate 2 weeks for follow-up, was counseled as return appointment, activity level, and side effect to be aware of. Medication Injected: Med Injected: Procedure is lumbar epidural steroid injection under local anesthetic using sterile prep and drape at the L5-S1 level using C-arm fluoroscopic guidance in both AP and lateral views medications injected is 120 mg Depo-Medrol +10mL preservative-free normal saline and 2 mL contrast- condition at discharge is sta ble patient tolerated procedure well had no complications. Condition at Discharge: Condition at Discharge: Condition at discharge stable, patient tolerated the procedure well and had no complications. NICK SEGURA MD Jun 11, 2021 09:59
--- NOTE | 2021-06-11 10:00 | PDOC4 ---
Procedure Note: ICD 10 Code: ICD 10 Code: M54.17 M51.87 M4 8.07 Procedure Note: Patient was consented for lumbar epidural steroid injection with fluoroscopic guidance. Risks were discussed including but not limited to: Bleeding, infection, possibility of epidural hematoma and subsequent neurological compromise, dural puncture, headaches, spinal cord and/or nerve damage, side effects of steroid medication, and poor results regarding pain control. Patient understands and wished to proceed. Procedure is lumbar epidural steroid injection under local anesthetic using skye rile prep and drape at the L5-S1 level using C-arm fluoroscopic guidance in both AP and lateral views medications injected is 120 mg Depo-Medrol +10mL preservative-free normal saline and 2 mL contrast- condition at discharge is stable patient tolerated procedure well had no complications. NICK SEGURA MD Jun 11, 2021 10:00
== END | disposition home or self-care (01) ==
LOC: PNCL 09:22
PROVIDERS: ATTEND Anesthesiology
DX: M51.16 Intervertebral disc disorders with radiculopathy, lumbar region (principal); M48.061 Spinal stenosis, lumbar region without neurogenic claudication; M50.10 Cervical disc disorder with radiculopathy, unspecified cervical region; M79.18 Myalgia, other site; Z79.899 Other long term (current) drug therapy; Z88.8 Allergy status to other drugs, medicaments and biological substances
CPT/HCPCS: 62323; J1030; J1040; Q9965

== ENCOUNTER → 2021-08-28 | Outpatient (CLI) | payer MEDICARE, BC ==
[~2021-08-28] MED LIST changes: +DEXAMETHASONE PRES.FREE 10 MG/ML VIAL. ONE; -methylPREDNISolone ACETATE 40 MG/ML VIAL. ONE; -methylPREDNISolone ACETATE 80 MG/ML VIAL. ONE
--- NOTE | 2021-08-28 10:53 | PDOC ---
Progress Note - Pain Clinic Date of Service: DOS: DATE: 08/28/21 TIME: 10:50 Diagnosis: Dx: Lumbar radiculopathy with lumbar degenerative disease and lumbar spinal stenosis Myofascial pain Cervical radiculopathy with cervical degenerative disc disease History or Present Illness: HPI: 71-year-old female returns for follow-up status post lumbar epidural steroid injection last seen June 16, 2021 patient did very well with 80% improvement for about 7 weeks following the injection patient reports the pain began to return very gradually since that time but is in the bilateral lower extremities across the low back and the posterior gluteus posterior thighs posterior calves with walking standing changing positions better with sitting or laying down generally does not awaken her from sleep at night but with standing walking is becoming more noticeable with radiating pain into the lower extremities right essentially equal to left patient reports is an 8 on scale 10 is worse over the past week 7 on average 6 at its least and is a 6 today patient scribes a sharp and tight the back shooting the legs can be radiating constant on and off in intensity patient reports no bowel or bladder incontinence. Patient reports she is getting ready to travel via automobile to [place] in about 4days and is worried about the pain returning during her trip. We discussed this further and will prescribe new medication for her Medrol Dosepak to take with her with instructions and side effects beware of discussed. Physical Exam: VS: Blood pressure is 160/100 pulse 81 respirations 18 temperature 98.7 F height 5 foot 1 inch weight is 130 pounds. PE: PHYSICAL EXAMINATION: GENERAL: The patient is awake, alert, oriented, appropriate, very pleasant in demeanor HEENT: Shows normocephalic, atraumatic. Extraocular movements are intact and symmetrical. Oral cavity: Mucous membranes moist and pink. Dentition is intact. NECK: Shows anterior throat supple without palpable lymphadenopathy noted. Swallow reflex symmetrical. CHEST: Shows normal on inspection. Breath sounds are clear bilaterally, distant but no rales or rhonchi auscultated. HEART: Shows S1, S2 clear. No murmurs auscultated. ABDOMEN: Soft, nontender, nondistended. No palpable organomegaly is noted. BACK: Shows spine grossly in the midline. Normal-appearing cervical lordotic curvature. There is mildly increased thoracic kyphosis, some minor flattening of the lumbar lordotic curvature. Lumbar paraspinous muscles show symmetrical on inspection, on palpation shows some moderate tenderness diffusely throughout the upper, middle and lower distribution of the paraspinous muscles without specific trigger points, without radiation of pain. The patient has good rotational motion of the lumbar spine, both laterally as well as extension and flexion without significant difficulty. No tenderness over the spinous processes, sacrum or sacroiliac regions. EXTREMITIES: Lower extremities show deep tendon reflexes 2+ in the patellar and tendo calcaneus tendons. Motor exam is 4 on a scale of 5 with right dorsiflexion, extension, quadriceps and hamstring flexion and 4/5 on the left. Peripheral pulses are 1 posterior tibial. No peripheral edema is noted bilaterally. Lower extremities are warm and dry to touch, equal in color and appearance. SKIN: Shows warm and dry, good turgor. No edema. No sores, rashes or bruising throughout. Procedure: Procedure: Options were discussed with patient. Patient's chart was reviewed as her curr ent medication regimen updated current review of systems updated today as well. We will proceed with a lumbar epidural steroid injection today with fluoroscopic guidance. Risks were discussed including but not limited to: Bleeding, infection, possibility of epidural hematoma and subsequent neurological compromise, dural puncture, headaches, spinal cord and/or nerve damage, side e ffects of steroid medication, and poor results regarding pain control. Patient understands and wished to proceed. Patient will return to clinic in approximately 4 weeks for follow-up, was counseled as to return appointment, activity level, and side effects to be aware of. Medication Injected: Med Injected: Procedure is lumbar epidural steroid injection under local anesthetic using sterile prep and drape at the L5-S1 level using C-arm fluoroscopic guidance in both AP and lateral views medications injected is 20 mg dexamethasone +10mL preservative-free normal saline and 2 mL contrast- condition at discharge is stable patient tolerated procedure well had no complications. Condition at Discharge: Condition at Discharge: Condition at discharge stable, patient tolerated the procedure well and had no complications. NICK SEGURA MD Aug 28, 2021 10:53
--- NOTE | 2021-08-28 10:54 | PDOC4 ---
Procedure Note: ICD 10 Code: ICD 10 Code: M5 4.17 M5 127 M4 8.07 Procedure Note: Patient was consented for lumbar epidural steroid injection with fluoroscopic guidance. Risks were discussed including but not limited to: Bleeding, infection, possibility of epidural hematoma and subsequent neurological compromise, dural puncture, headaches, spinal cord and/or nerve damage, side effects of steroid medication, and poor results regarding pain control. Patient understands and wished to proceed. Procedure is lumbar epidural steroid injection under local anesthetic using st erile prep and drape at the L5-S1 level using C-arm fluoroscopic guidance in both AP and lateral views medications injected is 20 mg dexamethasone +10mL preservative-free normal saline and 2 mL contrast- condition at discharge is stable patient tolerated procedure well had no complications. NICK SEGURA MD Aug 28, 2021 10:54
== END | disposition home or self-care (01) ==
LOC: PNCL 09:45
PROVIDERS: ATTEND Anesthesiology
DX: M51.16 Intervertebral disc disorders with radiculopathy, lumbar region (principal); M48.061 Spinal stenosis, lumbar region without neurogenic claudication; M79.18 Myalgia, other site; M50.10 Cervical disc disorder with radiculopathy, unspecified cervical region; Z79.899 Other long term (current) drug therapy; Z88.0 Allergy status to penicillin; Z88.8 Allergy status to other drugs, medicaments and biological substances
CPT/HCPCS: 62323; J1100; Q9965

== ENCOUNTER → 2021-10-01 | Outpatient (CLI) | payer MEDICARE, BC ==
[~2021-10-01] MED LIST changes: -DEXAMETHASONE PRES.FREE 10 MG/ML VIAL. ONE; +methylPREDNISolone ACETATE 40 MG/ML VIAL. ONE; +methylPREDNISolone ACETATE 80 MG/ML VIAL. ONE
--- NOTE | 2021-10-01 10:45 | PDOC ---
Progress Note - Pain Clinic Date of Service: DOS: DATE: 10/01/21 TIME: 10:41 Diagnosis: Dx: Lumbar radiculopathy lumbar degenerative disease lumbar spinal stenosis Cervical radiculopathy with cervical degenerative disease Myofascial pain History or Present Illness: HPI: 71-year-old female returns for follow-up status post lumbar epidural steroid injection most recently on September 02, 2019 patient did very well with 80% improvement her chief complaint today however is the neck and left upper extremity pain patient reports significant pain the base the neck and left shoulder radiating with repetitive motion and reaching over her shoulder with her left arm patient reports it is getting worse with time also radiating into the side of the neck and aspect behind the ear patient did have an MRI scan which we discussed with her today on September 04, 2020 showing C56 central canal stenosis most significant also C6-7 with disc bulge at both areas and disc bulge at C4-5 causing some moderate right and severe left foraminal stenosis C5-6 and mild to moderate central canal stenosis at C67 with mild stenosis at C4-5 as well. Patient report is worse with repetitive motions lifting items weightbearing and reaching forward rates as 8 on scale 10 is worse with past week 7 on average 6 at its least and is a 7 today patient reports no loss of motor function but significant fatigability of left upper extremity patient scribes aching and tight in the neck radiating cramping and burning and shooting in the left arm. Patient reports difficulty with fine motor movements as well as using the left arm with removing the lid on a jar for example. Patient reports no complete motor loss but significant fatigability. Physical Exam: VS: Blood pressure is 142/82 pulse 80 respirations are 18 temperature 98.8 F height 5 foot 1 his weight is 128 pounds. PE: PHYSICAL EXAMINATION: GENERAL: The patient is awake, alert, oriented, appropriate, very pleasant in demeanor HEENT: Shows normocephalic, atraumatic. Extraocular movements are intact and symmetrical. Oral cavity: Mucous membranes moist and pink. Dentition is intact. NECK: Shows anterior throat supple without palpable lymphadenopathy noted. Swallow reflex symmetrical. CHEST: Shows normal on inspection. Breath sounds are clear bilaterally, no rales or rhonchi. HEART: Shows S1, S2 clear. No murmurs auscultated. ABDOMEN: Soft, nontender, nondistended. No palpable organomegaly is noted. BACK: Shows spine grossly in the midline. Normal-appearing cervical lordotic curvature. Cervical paraspinous muscles show symmetrical inspection, on palpation some moderate tenderness diffusely bilaterally diffusely without significant radiation. Patient has good rotational motion cervical spine with lateral as well as extension flexion without significant pain reported. There is slightly increased thoracic kyphosis, some minor flattening of the lumbar lordotic curvature. Lumbar paraspinous muscles show symmetrical on inspection, on palpation shows some moderate tenderness diffusely throughout the upper, middle and lower distribution of the paraspinous muscles, but without specific trigger points, without radiation of pain. The patient has good rotational motion of the lumbar spine, both laterally as well as extension and flexion without significant difficulty. No tenderness over the spinous processes, sacrum or sacroiliac regions. EXTREMITIES: Lower extremities show deep tendon reflexes 2+ in the patellar and tendo calcaneus tendons. Motor exam is 4 on a scale of 5 with right dorsiflexion, extension, quadriceps and hamstring flexion and 4/5 on the left. Peripheral pulses are 1+ posterior tibial. No peripheral edema is noted bilaterally. Lower extremities are warm and dry to touch, equal in color and appearance. Upper extremities show deep tendon reflexes at 2+ in the bicep triceps tendons, motor exam strong with headrig sawyer strength rated 5 out of 5 as is bicep and tricep flexion bilaterally. Shoulder shrug is strong and intact without loss of strength on resistance bilaterally. SKIN: Shows warm and dry, good turgor. No edema. No sores, rashes or bruising throughout. Procedure: Procedure: Options were discussed with patient. Patient's old chart was reviewed as her current medication regimen updated current review of systems updated today as well. We will proceed with a cervical epidural steroid injection today with fluoroscopic guidance. Risks were discussed including but not limited to: Bleeding, infection, possibility of epidural hematoma and subsequent neurological compromise, dural puncture, headaches, spinal cord and/or nerve damage, side effects of steroid medication, and poor results regarding pain control. Patient understands and wished to proceed. Patient will return to the clinic in approximately 2 weeks for follow-up, was counseled as to return appointment, activity level, and side effects to be aware of. Medication Injected: Med Injected: Procedure cervical epidural steroid injection at the C6-7 level, using local anesthetic under sterile prep and drape using C-arm fluoroscopic guidance under local anesthesia medications injected ; 120 mg methylprednisolone +5 mL normal saline and 2 mL contrast; condition at discharge is stable patient tolerated procedure well. and had no complications Condition at Discharge: Condition at Discharge: Condition at discharge stable, paced tolerated procedure well and had no complications. NICK SEGURA MD Oct 01, 2021 10:45
--- NOTE | 2021-10-01 10:46 | PDOC4 ---
Procedure Note: ICD 10 Code: ICD 10 Code: M54.12 M50.30 Procedure Note: Patient was consented for cervical epidural steroid injection with fluoroscopic guidance. Risks were discussed including but not limited to: Bleeding, infection, possibility of epidural hematoma and subsequent neurological compromise, dural puncture, headaches, spinal cord and/or nerve damage, side effects of steroid medication, and poor results regarding pain control. Patient understands and wished to proceed. Procedure cervical epidural steroid injection at the C6-7 level, using local anesthetic under sterile prep and drape using C-arm fluoroscopic guidance under local anesthesia medications injected ; 120 mg methylprednisolone +5 mL normal saline and 2 mL contrast; condition at discharge is stable patient tolerated procedure well. and had no complications NCIK SEGURA MD Oct 01, 2021 10:45
== END | disposition home or self-care (01) ==
LOC: PNCL 09:38
PROVIDERS: ATTEND Anesthesiology
DX: M50.10 Cervical disc disorder with radiculopathy, unspecified cervical region (principal); M51.16 Intervertebral disc disorders with radiculopathy, lumbar region; M48.061 Spinal stenosis, lumbar region without neurogenic claudication; M79.18 Myalgia, other site; Z79.899 Other long term (current) drug therapy; Z88.0 Allergy status to penicillin; Z88.8 Allergy status to other drugs, medicaments and biological substances
CPT/HCPCS: 62321; J1030; J1040; Q9965